=== PATIENT | male | born 1980 | race Caucasian/White ===

== ENCOUNTER 2018-02-12 13:23 | Outpatient (CLI) | payer OTHER | END 2018-02-12 13:24 | disposition home or self-care (01) | LOC: SC 13:23 | PROVIDERS: ATTEND Internal Medicine Pulmonary Disease | DX: G47.30 Sleep apnea, unspecified (principal); G47.10 Hypersomnia, unspecified; R06.83 Snoring; G47.8 Other sleep disorders | CPT/HCPCS: 99203; 99212 ==

== ENCOUNTER 2018-03-26 11:34 | Emergency (ER) | payer OTHER ==
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
[2018-03-26] MEDS ORDERED: MUPIROCIN 2% OINT 1 GM TOP STA (13:22)
[2018-03-26] MEDS ORDERED: ACETAMINOPHEN 325 MG TABLET PO STA (13:23)
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
--- NOTE | 2018-03-26 14:08 | CT Preliminary Report ---
Exam: CT HEAD W/O IMPRESSION: 1. Left periorbital and facial contusion and edema. 2. Negative for intracranial acute hemorrhage and mass effect. [facility] SITE ID: [id number]
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
--- NOTE | 2018-03-26 14:17 | CT Preliminary Report ---
Exam: CT FACIAL BONES W/O IMPRESSION: 1. Left periorbital subcutaneous hematoma and contusion 2. No acute fracture. [facility] SITE ID: [id number]
[2018-03-26 14:41] VITALS: BP 129/90
== END 2018-03-26 14:40 | disposition home or self-care (01) ==
LOC: ED 11:34
DX: S06.0X1A Concussion with loss of consciousness of 30 minutes or less, initial encounter (principal); S00.83XA Contusion of other part of head, initial encounter; S00.12XA Contusion of left eyelid and periocular area, initial encounter; S00.81XA Abrasion of other part of head, initial encounter; H11.32 Conjunctival hemorrhage, left eye; V18.4XXA Pedal cycle driver injured in noncollision transport accident in traffic accident, initial encounter; Y93.55 Activity, bike riding; Y92.828 Other wilderness area as the place of occurrence of the external cause
CPT/HCPCS: 70450; 70486; 99283; A9270

== ENCOUNTER 2018-04-05 22:23 | Outpatient (CLI) | payer OTHER | END 2018-04-05 22:24 | disposition home or self-care (01) | LOC: SC 22:23 | PROVIDERS: ATTEND Internal Medicine Pulmonary Disease | DX: G47.33 Obstructive sleep apnea (adult) (pediatric) (principal); G47.61 Periodic limb movement disorder | CPT/HCPCS: 95810 ==

== ENCOUNTER 2018-05-31 08:57 | Outpatient (CLI) | payer OTHER | END 2018-05-31 08:58 | disposition home or self-care (01) | LOC: SC 08:57 | PROVIDERS: ATTEND Nurse Practitioner Family | DX: G47.33 Obstructive sleep apnea (adult) (pediatric) (principal); G47.61 Periodic limb movement disorder | CPT/HCPCS: 99212; 99214 ==

== ENCOUNTER 2018-08-16 13:06 | Outpatient (CLI) | payer OTHER | END 2018-08-16 13:07 | disposition home or self-care (01) | LOC: SC 13:06 | PROVIDERS: ATTEND Nurse Practitioner Family | DX: G47.33 Obstructive sleep apnea (adult) (pediatric) (principal) | CPT/HCPCS: 99212; 99214 ==

== ENCOUNTER 2018-09-19 13:03 | Outpatient (CLI) | payer OTHER | END 2018-09-19 13:04 | disposition home or self-care (01) | LOC: SC 13:03 | PROVIDERS: ATTEND Nurse Practitioner Family | DX: G47.33 Obstructive sleep apnea (adult) (pediatric) (principal) | CPT/HCPCS: 99212; 99214 ==

== ENCOUNTER 2018-11-06 12:48 | Outpatient (CLI) | payer OTHER | END 2018-11-06 12:49 | disposition home or self-care (01) | LOC: SC 12:48 | PROVIDERS: ATTEND Nurse Practitioner Family | DX: G47.33 Obstructive sleep apnea (adult) (pediatric) (principal); G47.00 Insomnia, unspecified | CPT/HCPCS: 99212; 99214 ==

== ENCOUNTER 2018-12-10 14:32 | Outpatient (CLI) | payer OTHER | END 2018-12-10 14:33 | disposition home or self-care (01) | LOC: SC 14:32 | PROVIDERS: ATTEND Nurse Practitioner Family | DX: G47.33 Obstructive sleep apnea (adult) (pediatric) (principal); G47.00 Insomnia, unspecified | CPT/HCPCS: 99212; 99214 ==

== ENCOUNTER 2019-01-24 13:43 | Outpatient (CLI) | payer OTHER | END 2019-01-24 13:44 | disposition home or self-care (01) | LOC: SC 13:43 | PROVIDERS: ATTEND Nurse Practitioner Family | DX: G47.33 Obstructive sleep apnea (adult) (pediatric) (principal); G47.00 Insomnia, unspecified | CPT/HCPCS: 99212; 99214 ==

== ENCOUNTER 2019-03-14 12:46 | Outpatient (CLI) | payer OTHER | END 2019-03-14 12:47 | disposition home or self-care (01) | LOC: SC 12:46 | PROVIDERS: ATTEND Nurse Practitioner Family | DX: G47.33 Obstructive sleep apnea (adult) (pediatric) (principal) | CPT/HCPCS: 99212; 99214 ==

== ENCOUNTER 2019-04-21 07:04 | Emergency (ER) | payer OTHER ==
[2019-04-21 07:10] VITALS: BP 137/106
[2019-04-21] MEDS ORDERED: PENICILLIN VK 250 MG TABLET PO STA (07:36)
[2019-04-21] MEDS ORDERED: CHERRY SYRUP 10 ML UDC PO ONE (07:36)
[2019-04-21] MEDS ORDERED: IBUPROFEN 800 MG TABLET PO STA (07:36)
[2019-04-21] MEDS ORDERED: DEXAMETHASONE 10 MG/ML VIAL PO STA (07:36)
--- NOTE | 2019-04-21 07:39 | ED Physician Documentation ---
History of Present Illness - Stated complaint Stated Complaint: SORE THROAT - Chief complaint Chief Complaint: Heent - History obtained from History obtained from: Patient - History of Present Illness Timing: How many weeks ago (2) Pain level max: 8 Pain level now: 8 Improved by: motrin Worsened by: swallowing - Additonal information Additional information: 38-year-old male states that he has had a sore throat for the past 2 weeks. History of recurrent strep infections. No fevers. No coughing. No rhinorrhea or congestion. Does use CPAP but has not used it for the last week to see if this would help his throat. Took Motrin yesterday. Review of Systems Constitutional: denies: Fever, Chills Nose: denies: Rhinorrhea / runny nose, Congestion Throat: reports: Sore throat Cardiac: denies: Chest pain / pressure Respiratory: denies: Dyspnea, Cough GI: denies: Vomiting, Diarrhea Skin: denies: Rash Musculoskeletal: denies: Neck pain, Back pain Neurologic: denies: Focal weakness, Numbness, Headache PD PAST MEDICAL HISTORY - Past Medical History Cardiovascular: None Respiratory: None Endocrine/Autoimmune: None - Past Surgical History Past Surgical History: Yes - Present Medications Home Medications: Ambulatory Orders Medication Instructions Recorded Confirmed Hydrocodone/Acetaminophen 1 - 2 each PO Q6H PRN #10 tablet 04/21/19 [Hydrocodon-Acetaminophen 5-325] Ibuprofen [Motrin] 800 mg PO Q8H PRN #30 tablet 04/21/19 Penicillin V Potassium 500 mg PO Q6HR #40 tablet 04/21/19 - Allergies Allergies/Adverse Reactions: Allergies Allergy/AdvReac Type Severity Reaction Status Date / Time No Known Drug Allergies Allergy Verified 04/21/19 07:10 - Social History Does the pt smoke?: No Smoking Status: Never smoker Does the pt drink ETOH?: Yes Does the pt have substance abuse?: No - Immunizations Immunizations are current?: Yes PD ED PE NORMAL - Vitals Vital signs reviewed: Yes - General General: Alert and oriented X 3, No acute distress, Well developed/nourished - HEENT HEENT: Moist mucous membranes, Other (moderate oropharyngeal erythema with tonsillar exudates. uvula midline. normal phonation. no trismus.) - Neck Neck: Supple, no meningeal sign - Cardiac Cardiac: RRR, Strong equal pulses - Respiratory Respiratory: No respiratory distress, Clear bilaterally - Abdomen Abdomen: Soft, Non tender, Non distended - Derm Derm: Warm and dry, No rash - Neuro Neuro: Alert and oriented X 3 - Psych Psych: Normal mood, Normal affect Results - Vitals Vitals: Vital Signs - 24 hr 04/21/19 07:08 Temperature 37.0 C Heart Rate 98 Respiratory 18 Rate Blood Pressure 137/106 H O2 Saturation 99 Oxygen O2 Source Room air - Labs Labs: Laboratory Tests 04/21/19 07:12 Group A Strep Rapid Negative PD MEDICAL DECISION MAKING - ED course Complexity details: reviewed results, considered differential, d/w patient ED course: 38-year-old male with what appears to be strep pharyngitis clinically. Rapid strep is negative, but will treat as other types of strep may be causing his symptoms. He is well-appearing, nontoxic. Given dexamethasone here as well. We will continue supportive care. Patient counseled regarding signs and symptoms for which I believe and urgent re-evaluation would be necessary. Patient with good understanding of and agreement to plan and is comfortable going home at this time This document was made in part using voice recognition software. While efforts are made to proofread this document, sound alike and grammatical errors may occur. Departure - Departure Disposition: 01 Home, Self Care Clinical Impression: Pharyngitis Qualifiers: Pharyngitis/tonsillitis etiology: unspecified etiology Qualified Code(s): J02.9 - Acute pharyngitis, unspecified Condition: Good Instructions: ED Strep Pharyngitis Poss Follow-Up: Omar Stevens MD [Primary Care Provider] - Within 1 week Prescriptions: Penicillin V Potassium 500 mg PO Q6HR #40 tablet Hydrocodone/Acetaminophen [Hydrocodon-Acetaminophen 5-325] 1 - 2 each PO Q6H PRN #10 tablet PRN Reason: pain Ibuprofen [Motrin] 800 mg PO Q8H PRN #30 tablet PRN Reason: PAIN &/OR FEVER Comments: return if you worsen. Take all antibiotics until gone. Drink plenty of fluids. Do not drink alcohol or drive while on narcotic pain medicine. Note that many narcotic pain relievers also contain tylenol/acetaminophen. Please ensure that your total dose of acetaminophen from all sources does not exceed 3 grams (3000mg) per day. You may constipated on this medication, take a stool softener such as "Colace" twice a day while you are on it. Also recommend a [id number] laxative such as senna or MiraLAX any day that you do not have a bowel movement. If you received narcotic pain medication in the emergency department, do not drive or operate machinery for the next 24 hours.
== END 2019-04-21 07:45 | disposition home or self-care (01) ==
LOC: ED 07:04
DX: J02.9 Acute pharyngitis, unspecified (principal)
CPT/HCPCS: 87070; 87430; 99283; A9270

== ENCOUNTER 2019-08-21 13:53 | Outpatient (CLI) | payer OTHER ==
[2019-08-21 15:08] VITALS: BP 122/82
--- NOTE | 2019-08-21 15:08 | SLEEP CARE CONSULTATION ---
Information from patient questionnaire entered by Angela Barroso. I have reviewed and concur with the information entered by Angela Barroso. This document represents the service I personally performed and the decisions made by me, Jen Vicente, RN, MSN, ROD GRE[employer]ER. History of Present Illness Previous diagnosis: Moderate, Obstructive Sleep Apnea-Hypopnea Syndrome AHI: 15.1 Reason for CPAP/BiPAP follow up: three month Equipment type: CPAP Equipment obtained from: [employer] Mask style: Full face Mask brand: Respironics (Dreamwear) Backup mask available: Yes Last cushion change: 3 weeks ago Prior sleep studies: Yes Year and Where: 2017 [facility] additional information: The transfer to [facility] is working better and getting supplies on time. He asked about options for camping and use of an oral appliance during travel. He would like to have a battery for travel for [employer] (P). His CPAP use has decreased due to travel and off grid camping. CPAP Compliance Data - Data Reviewed with Patient Average duration of nightly device use: 6h 41m Compliance rate %: 53 Current pressure setting (cmH2O): 8-10 Humidity settin Heated hose settin% Average residual AHI: 3.1 Average large leak: 0.2 liters Subjective Missed days of use due to: reports: illness (dryness of nose that thought was cold symptoms ), travel, other (camping) Patient concerns: reports: condensation in mask/hose (once at higher humdity setting), nasal congestion (for past month with sneezing, itching eyes and frontal intermittently), dry mouth, nose, throat (dry nose recently). denies: aerophagia, mask discomfort, air blowing in eyes, mask leak noise, epistaxis Observed to snore while using device: No (but sleep separately) Current pressure setting perceived as: comfortable On therapy, patient: reports: sleeping better, awakening more refreshed, being more awake and alert during the day, more rested overall. denies: drowsiness while driving Initial [place] Sleepiness Scale score: 11 Current [place] Sleepiness Scale score: 9 Allergies and Home Medications Known drug allergies: No Home medication list reviewed: Yes Allergy and home medication list: Medication Name (generic/name brand) Strength & Dosage Diphenhydramine 25mg tab at bedtime as needed Melatonin 10mg tab one at bedtime as needed Physical Exam Blood Pressure: 122/82 Cuff size: long Heart Rate: 88 O2 Saturation: 98 Height: 5 ft 10.25 in Weight: 203 lb 12.8 oz (with boots and fatigues) Body Mass Index: 29.0 BMI Classification: Overweight Nasal exam: positive: erythema Impression and Plan 1. Obstructive Sleep Apnea-Hypopnea Syndrome, moderate, with fair treatment compliance and good apnea control. On CPAP therapy, the patient has better sleep quality and is more rested overall. His compliance fell due to travel and camping. For travel and camping, a battery for CPAP can be obtained but prescription needs to be made by his PCP and sent to his supplier. If decides he would like to use an oral appliance for travel, a prescription w ould need to be made and insurance contacted to see if would cover in addition to CPAP. A list of dentists was given to consider. To reduce fatigue from irregular sleep schedule from traveling, he is advised to regulate wake time and allow for 7-8 hours of sleep but only go to bed when sleepy. If he is going to take melatonin he is to take a lower dose such as 2-3 mg as it is generally more effective and take a few hours before bedtime to allow time enough to work. For his nasal irritation, I gave him some samples of Saima Ease nasal cream to use 4 times a day for 7-10 days and then as needed. Printed information given. He is to raise the humidity. For seasonal allergy symptoms, he is to try Claritin over the counter daily for 2 weeks and then as needed. Flonase may be added if needed at follow up. At this time, nose is too irritated. Continue shower at night to wash allergens facilitates nasal drainage. Dont pick the nose, use saline only to clear secretions. Patient's apnea severity and rationale for treatment to reduce apnea, improve sleep quality and reduce cardiovascular and cerebrovascular events was reviewed. I also reviewed again that since is apnea is more severe supine, he is to avoid sleeping supine if unable to use CPAP. * Continue CPAP pressure at [id number] * change melatonin as directed * Implement methods to reduce nasal irritation / allergic rhinitis symptoms * Follow up with PCP for CPAP battery prescription * Notify me if snoring with mask or feeling that the pressure is too much or too little * Attempt to lose weight * Use CPAP with all sleep. * Avoid supine sleep if unable to CPAP. * Return for follow up in 1-2 months , or sooner if concerns arise I spent 100% of this 40 minute visit face to face with the patient with greater than 50% of this was spent time counseling the patient and coordination of care.
== END 2019-08-21 13:54 | disposition home or self-care (01) ==
LOC: SC 13:53
PROVIDERS: ATTEND Nurse Practitioner Family
DX: G47.33 Obstructive sleep apnea (adult) (pediatric) (principal); E66.3 Overweight; Z68.29 Body mass index [BMI] 29.0-29.9, adult
CPT/HCPCS: 99212; 99215

== ENCOUNTER 2019-10-31 11:09 | Outpatient (CLI) | payer OTHER ==
--- NOTE | 2019-10-31 12:10 | SLEEP CARE CONSULTATION ---
Information from patient questionnaire entered by Gabby Morales. I have reviewed and concur with the information entered by Gabby Morales. This document represents the service I personally performed and the decisions made by me, Jen Vicente, RN, MSN, VOLTAGE TESTER. History of Present Illness Previous diagnosis: Moderate, Obstructive Sleep Apnea-Hypopnea Syndrome AHI: 15.1 Reason for follow up: other (6 week) Equipment type: CPAP Equipment obtained from: [employer] Mask style: Full face Mask brand: Respironics Backup mask available: Yes Last cushion change: a couple of weeks ago. 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 He tried melatonin 5mg at 7pm before 9:30 bedtime and did not notice any difference. However, he is now using Benadryl 1 and 1/2 tablets most nights and assists him to sleep. He does not wake groggy. The Saima Ease nasal cream resolved nasal irritation The Claritin did help reduce allergic rhinitis symptoms. Saline has not been needed lately. He looked into oral appliance and decided to stay with CPAP as it is working. CPAP Compliance Data - Data Reviewed with Patient Average duration of nightly device use: 6.45 Compliance rate %: 77 (60 days) Current pressure setting (cmH2O): 8-10 Humidity settin Average residual AHI: 2.7 Subjective Missed days of use due to: reports: travel (travel with without access to outlets ), other (falling asleep on couch without CPAP occasionally ) Patient concerns: reports: other (reports headache later in day, saw PCM - naproxen ordered and follow up / intermittent difficulty falling asleep that he feels is due to anxiety). denies: aerophagia, mask discomfort, air blowing in eyes, mask leak noise, condensation in mask/hose, nasal congestion, dry mouth, nose, throat, epistaxis Observed to snore while using device: No (sleep separately) Current pressure setting perceived as: comfortable On therapy, patient: reports: sleeping better, awakening more refreshed, being more awake and alert during the day, more rested overall. denies: drowsiness while driving Initial [place] Sleepiness Scale score: 11 Current [place] Sleepiness Scale score: 9 Review of Systems Review of systems same as previous: No (increase in back pain, new onset past few months. ) Physical Exam Blood Pressure: 128/90 (back pain 4 on pain scale ) Cuff size: long Heart Rate: 82 O2 Saturation: 98 Weight: 205 lb 3.2 oz (with boots / fatigues ) Weight change since last visit: increased 2 pounds Impression and Plan 1. Obstructive Sleep Apnea-Hypopnea Syndrome, moderate, with good treatment compliance and good apnea control. On CPAP therapy, the patient has better sleep quality and is more rested overall. To reduce falling asleep without CPAP, he is advised to set a phone or watch alarm for bedtime. Nasal congestion has resolved with use of Claritin. [facility] I explained best use of CPAP battery is without use of humidity as it draws too much power. The battery will last [address] of humidity, moisture can be obtained by using his saline nasal spray prior to CPAP. Patient's apnea severity and rationale for treatment to reduce apnea, improve sleep quality and reduce cardiovascular and cerebrovascular events was reviewed. Since his apnea is more severe supine, he is to avoid supine sleep if unable to use CPAP. 2. Insomnia, mainly difficulty getting sleep due to things on mind that he feels is anxiety. Now especially in transition to senior care. Thus he is advised to discuss with his PCP to discuss a referral to counselor to assist his transition. Until then he can write out concerns as a release and then read something soothing until sleepy. He already listens to sound machine to assist sleep. * Continue CPAP pressure at [id number] * Follow up with PCP re anxiety * Notify me if snoring with mask or feeling that the pressure is too much or too little * Attempt to lose weight * Return for follow up in 1 year , or sooner if concerns arise I spent 100% of this 30 minute visit face to face with the patient with greater than 50% of this was spent time counseling the patient and coordination of care.
[2019-10-31 12:11] VITALS: BP 128/90
== END 2019-10-31 11:10 | disposition home or self-care (01) ==
LOC: SC 11:09
PROVIDERS: ATTEND Nurse Practitioner Family
DX: G47.33 Obstructive sleep apnea (adult) (pediatric) (principal); G47.00 Insomnia, unspecified
CPT/HCPCS: 99212; 99214